=== PATIENT | male | born 1980 ===

== ENCOUNTER 2021-05-03 04:57 | Emergency (ER) | payer SELFPAY ==
[2021-05-03 05:01] VITALS: BP 136/88
--- NOTE | 2021-05-03 05:08 | NUR ---
STUDENT OUTREACH COORDINATOR: AFTER TRIAGING PT, RN INFORMED PT WE WOULD DO AN EKG BUT THEN HE WOULD HAVE TO GO BACK INTO THE LOBBY UNTIL WE HAVE A ROOM AVAILABLE, PT STATES "YOU UNDERSTAND I NEED FLUIDS RIGHT? LIKE IM LOOSING ALL MY FLUIDS SO I NEED THEM REPLACED". RN INFORMED PT THAT THE PROVIDER WOULD SEE THEM AND DECIDE ON ORDERS ONCE THEY HAVE A ROOM TO BE SEEN. PT WALKED OUT OF TRIAGE ROOM AND HOSPITAL AT THIS TIME. REFUSED TO SIGN AMA PAPERWORK. RECOMMENDED FOR PT TO STAY AND BE SEEN.
== END 2021-05-03 05:12 | disposition left against medical advice (07) ==
LOC: ED 05:00
DX: R68.2 Dry mouth, unspecified (principal); Z53.21 Procedure and treatment not carried out due to patient leaving prior to being seen by health care provider